=== PATIENT | female | born 1955 | race Caucasian/White ===

== ENCOUNTER → 2019-01-13 | Outpatient (CLI) | payer BC, MEDICARE ==
--- NOTE | 2019-01-13 12:53 | KCIC ---
EXAM: AP and lateral views of the right knee DATE: 01/13/2019 12:00 AM INDICATION: Right knee pain COMPARISON: No Prior FINDINGS: No evidence of acute fracture or dislocation. Curvilinear sclerosis at the medial femoral condyle extending to the articular surface possibly from old fracture or marrow infarct. No knee joint effusion. Chondrocalcinosis. Joint spaces are preserved without significant degenerative/proliferative change. IMPRESSION: 1. Linear sclerosis medial femoral condyle, possibly bone infarct or from old fracture. 2. Chondrocalcinosis 3. No evidence for acute fracture or dislocation. Electronically signed by: Juan Miguel Rome MD (01/13/2019 12:50 PM) [facility]
== END | disposition home or self-care (01) ==
LOC: KCIC 10:10
PROVIDERS: ATTEND Family Medicine
DX: M11.261 Other chondrocalcinosis, right knee (principal)
CPT/HCPCS: 73560

== ENCOUNTER → 2019-06-12 | Outpatient (CLI) | payer BC, MEDICARE ==
--- NOTE | 2019-06-12 11:46 | KCIC ---
Indication: 40 year history of smoking. Family history of AAA. TECHNIQUE: Grayscale, color Doppler and spectral waveform images of the aorta and bilateral iliac vessels COMPARISON: None FINDINGS: The proximal aorta measures 2 cm in diameter with velocity of 112 cm/s. The mid aorta measures 1.9 cm in diameter with velocity of 118 cm/s. The distal aorta measures 1.6 cm in diameter with velocity of 84 cm/s. The right proximal common iliac artery measures 1.1 cm in diameter with velocity of 120 cm/s. The left proximal common iliac artery measures 0.9 cm in diameter with velocity of 132 cm/s. IMPRESSION: No evidence of aortic aneurysm. Electronically signed by: Scotty Rascon DO (06/12/2019 11:43 AM) [facility]
== END | disposition home or self-care (01) ==
LOC: KCIC US 10:41
PROVIDERS: ATTEND Family Medicine
DX: I10 Essential (primary) hypertension (principal); Z72.0 Tobacco use; Z82.49 Family history of ischemic heart disease and other diseases of the circulatory system
CPT/HCPCS: 76770

== ENCOUNTER → 2019-08-01 | Outpatient (CLI) | payer BC, MEDICARE ==
--- NOTE | 2019-08-01 11:59 | CARD ---
MR#: [id number] Date of Study: 08/01/2019 Ordering Physician: MANASA AKERS, Referring Physician: MANASA AKERS, Tech: Edie Staley ARIANNA APPROVED REPORT EXAM: Two-dimensional and M-mode echocardiogram with Doppler and color Doppler. Other Information Quality : Technically LimitedHR: 69bpm Rhythm : NSRTechnically limited study due to body habitus & lungs. INDICATION Murmur 2D DIMENSIONS RVDd2.7 (2.9-3.5cm)Left Atrium(2D)3.1 (1.6-4.0cm) IVSd1.0 (0.7-1.1cm)Aortic Root(2D)2.2 (2.0-3.7cm) LVDd4.4 (3.9-5.9cm)LVOT Diameter2.0 (1.8-2.4cm) PWd1.1 (0.7-1.1cm)LVDs3.1 (2.5-4.0cm) FS (%) 28.2 %SV47.5 ml LVEF(%)54.7 (>50%) M-Mode DIMENSIONS Left Atrium(MM)3.89 (2.5-4.0cm)Aortic Root2.98 (2.2-3.7cm) Aortic Valve AoV Peak Michele.181.8cm/sAoV VTI33.4cm AO Peak GR.13.2mmHgLVOT Peak Michele.106.2cm/s AO Mean GR.7mmHgAVA (VMAX)1.85cm2 ASHELY (VTI)1.90cm2 Mitral Valve MV E Inhkqawg23.4cm/sMV DECEL [id number] MV A Ieujfetm05.7cm/sE/A Ratio1.0 Pulmonary Valve PV Peak Fuqcarwo511.3cm/s LEFT VENTRICLE The left ventricle is normal size. There is normal left ventricular wall thickness. The left ventricu lar systolic function is normal. The Ejection Fraction is 55-60%. There is normal LV segmental wall m otion. Transmitral Doppler flow pattern is Grade II-pseudonormal filling dynamics. RIGHT VENTRICLE The right ventricle is normal size. There is normal right ventricular wall thickness. The right ventr icular systolic function is normal. ATRIA The left atrium size is normal. The right atrium size is normal. The interatrial septum is intact wit h no evidence for an atrial septal defect or patent foramen ovale as noted on 2-D or Doppler imaging. AORTIC VALVE The aortic valve is probably trileaflet. The aortic valve is not well visualized. Doppler and Color F low revealed no significant aortic regurgitation. There is no significant aortic valvular stenosis. MITRAL VALVE The mitral valve is normal in structure and function. There is no evidence of mitral valve prolapse. There is no mitral valve stenosis. Doppler and Color Flow revealed no mitral valve regurgitation note d. TRICUSPID VALVE The tricuspid valve is normal in structure and function. Doppler and Color Flow revealed trace tricus pid regurgitation. There is no tricuspid valve prolapse or vegetation. There is no tricuspid valve st enosis. PULMONIC VALVE The pulmonic valve is not well visualized. GREAT VESSELS The aortic root is normal in size. The ascending aorta is normal in size. The IVC is normal in size a nd collapses >50% with inspiration. PERICARDIAL EFFUSION There is no evidence of significant pericardial effusion. Critical Notification Critical Value: No <Conclusion> The left ventricular systolic function is normal. The Ejection Fraction is 55-60%. There is normal LV segmental wall motion. Trace tricuspid regurgitation. There is no evidence of significant pericardial effusion. Signed by : Gregory Lindsey, Electronically Approved : 08/01/2019 11:58:37
--- NOTE | 2019-08-01 14:13 | RAD ---
MR#: [id number] Date of Study: 08/01/2019 Ordering Physician: MANASA AKERS, Referring Physician: MANASA AKERS, Tech: Anson Sargent MBA, RDMS, RVT, RDCS, RTR APPROVED REPORT Bilateral Lower Extremity Venous Study for DVT Patient Location: OUT-PATIENT Indications Lower Extremity Edema: Bilateral Vein Imaging (Right) CFV (R): Compressible SFJ (R): Compressible FEM (R): Compressible POP (R): Compressible DFV (R): Compressible PTV (R): Spontaneous GSV (R): Spontaneous Peroneals (R): Spontaneous Vein Imaging (Left) CFV (L): Compressible SFJ (L): Compressible FEM (L): Compressible POP (L): Compressible DFV (L): Compressible PTV (L): Spontaneous GSV (L): Spontaneous Peroneals (L): Spontaneous Doppler Evaluation (Right) CFV (R): Spontaneous POP (R):Spontaneous Doppler Evaluation (Left) CFV (L):Spontaneous POP (L):Spontaneous Findings Onofre scale images of the bilateral saphenofemoral junctions, common femoral veins, superficial femora l veins, popliteal veins are grossly unremarkable. Normal color Doppler and spectral waveforms are no jacob with normal compressibility. The below-knee veins demonstrate spontaneous flow and no obvious thr ombus is noted. Critical Notification Critical Value: No <Conclusion> Negative for DVT in the lower extremities Signed by : Kyle Villarreal, Electronically Approved : 08/01/2019 14:12:48
--- NOTE | 2019-08-01 14:15 | RAD ---
MR#: [id number] Date of Study: 08/01/2019 Ordering Physician: MANASA AKERS, Referring Physician: MANASA AKERS, Tech: Anson Sargent MBA, RDMS, RVT, RDCS, RTR APPROVED REPORT Patient Location : OUT-PATIENT Indications Lower Extremity Edema : Bilateral Findings Grayscale images of the saphenofemoral junctions and the bilateral greater saphenous veins are unrema rkable. The right great saphenous vein measures 4.5 mm in the left great saphenous vein measures 5.7 mm. The bilateral greater and lesser saphenous veins do not show any evidence of reflux. Critical Notification Critical Value: No <Conclusion> Negative for reflux in the bilateral lower extremities Signed by : Kyle Villarreal, Electronically Approved : 08/01/2019 14:14:47
== END | disposition home or self-care (01) ==
LOC: US 10:44
PROVIDERS: ATTEND Internal Medicine Cardiovascular Disease
DX: R60.0 Localized edema (principal); R01.1 Cardiac murmur, unspecified
CPT/HCPCS: 93306; 93970

== ENCOUNTER → 2021-07-28 | Outpatient (CLI) | payer MEDICARE, BC ==
--- NOTE | 2021-07-28 15:58 | KCIC ---
EXAM: Right knee, 3 views. HISTORY: Pain. Fall. COMPARISON: None. FINDINGS: 3 views of the right knee are obtained. There is subchondral sclerosis involving the latera l articular aspect of the medial femoral condyle. No cortical collapse is seen. There is medial and l ateral compartment chondrocalcinosis. There is no significant joint effusion. IMPRESSION: 1. Subchondral sclerosis involving the articular aspect of the medial femoral condyle, suggesting spo ntaneous osteonecrosis (SONK). No cortical collapse is seen. 2. Right knee chondrocalcinosis. Electronically signed by: Kareen Peguero MD (07/28/2021 3:56 PM) [id number]
== END ==
LOC: KCIC 15:34
PROVIDERS: ATTEND Family Medicine
DX: M11.261 Other chondrocalcinosis, right knee (principal); M25.861 Other specified joint disorders, right knee
CPT/HCPCS: 73562